=== PATIENT | female | born 1945 | race Caucasian/White ===

== ENCOUNTER 2016-09-05 12:27 | Inpatient (IN) | payer MEDICARE, BC ==
[~2016-09-05] VITALS: Ht 160 cm; Wt 97.3 kg
[~2016-09-05 12:27] MED LIST: AMARYL2 MG PO; COD LIVER OIL1 CAP PO; MELOXICAM15 MG PO; METFORMIN500 MG PO; MULTIVITAMIN FO1 CAP PO; NEXIUM40 MG PO; OSTEO-BI-FLEX 21 TAB PO; SIMVASTATIN40 MG PO
[2016-10-08] VITALS (10 sets, daily range): BP systolic 128–167; BP diastolic 65–88; PULSE 80–97; TEMP 97.6–98.4
[2016-10-08] MEDS ORDERED: AMARYL4 MG PO (06:07)
[2016-10-08] MEDS ORDERED: COZAAR100 MG PO (06:08)
[2016-10-08] MEDS ORDERED: LIPITOR 40MG TA40 MG PO (06:09)
[2016-10-08] MEDS ORDERED: MOBIC15 MG PO (06:09)
[2016-10-08] MEDS ORDERED: GLUCOPHAGE1000 MG PO (06:09)
[2016-10-08] MEDS ORDERED: PLENDIL 5MG TAB5 MG PO (06:10)
[2016-10-08] MEDS ORDERED: ACTOS30 MG PO (06:10)
[2016-10-08] MEDS ORDERED: ASPIRIN E.C. 8181 MG PO (06:11)
[2016-10-08] MEDS ORDERED: LUTEIN20 M1 (06:12)
[2016-10-08] MEDS ORDERED: TIROSINT50 MC1 PO (06:12)
[2016-10-08] MEDS ORDERED: NEXIUM 40MG40 MG PO (06:13)
[2016-10-08] MEDS ORDERED: ALEVE 220MG220 MG PO (06:13)
[2016-10-08 11:23] LABS: MEAN CELL VOLUME 93 fl (80.0-100.0); MEAN CORPUSCULAR HGB CONC 34 g/dl (33.0-37.0); MEAN PLATELET VOLUME 9.4 fl (7.4-10.4); PLATELET COUNT 192 K/mm3 (130-400); RED BLOOD COUNT 3.78 M/mm3 (4.10-5.30); REDCELL DISTRIBUTION WIDTH-CV 12.8 % (11.5-14.5); WHITE BLOOD COUNT 10.3 K/mm3 (4.8-10.8)
[2016-10-08 11:26] LABS: HEMOGLOBIN 11.9 g/dl (12.5-16.0); MEAN CORPUSCULAR HEMOGLOBIN 31 pg (27.0-31.0)
[2016-10-09 00:09] VITALS: BP 144/69; PULSE 86; TEMP 98.4
[2016-10-09 05:01] VITALS: BP 155/67; PULSE 91; TEMP 98.8
[2016-10-09 07:27] LABS: BASO % 0.1 % (0.0-2.0); EOS % 0.1 % (0-4.0); GRAN # 10.8 (1.4-6.5); GRAN % 79.7 % (42.2-75.2); LYMPH # 1.4 (1.2-3.4); LYMPH % 10.2 % (20.0-51.0); MEAN CELL VOLUME 93 fl (80.0-100.0); MEAN CORPUSCULAR HGB CONC 34 g/dl (33.0-37.0); MEAN PLATELET VOLUME 9.2 fl (7.4-10.4); MONO # 1.3 (0.1-0.6); MONO % 9.5 % (1.7-9.3); PLATELET COUNT 188 K/mm3 (130-400); RED BLOOD COUNT 3.08 M/mm3 (4.10-5.30); REDCELL DISTRIBUTION WIDTH-CV 13.2 % (11.5-14.5); WHITE BLOOD COUNT 13.5 K/mm3 (4.8-10.8)
[2016-10-09 07:45] LABS: HEMATOCRIT 28.7 % (37.0-47.0); HEMOGLOBIN 9.8 g/dl (12.5-16.0); MEAN CORPUSCULAR HEMOGLOBIN 32 pg (27.0-31.0)
[2016-10-09 07:49] LABS: CALCIUM 8.9 mg/dL (8.4-10.2); CREATININE, serum 0.64 mg/dL (0.52-1.25); POTASSIUM 3.8 mmol/L (3.4-5.0)
[2016-10-09 09:41] VITALS: BP 140/66; PULSE 90; TEMP 98.8
[2016-10-09 13:45] VITALS: BP 138/65; PULSE 85; TEMP 98
[2016-10-09 17:24] VITALS: BP 128/59; PULSE 82; TEMP 98.7
[2016-10-09 22:32] VITALS: BP 137/58; PULSE 79; TEMP 97.8
[2016-10-10 05:36] VITALS: BP 125/55; PULSE 75; TEMP 98.1
[2016-10-10 07:26] LABS: HEMATOCRIT 27.6 % (37.0-47.0); HEMOGLOBIN 9.5 g/dl (12.5-16.0); MEAN CELL VOLUME 92 fl (80.0-100.0); MEAN CORPUSCULAR HEMOGLOBIN 32 pg (27.0-31.0); MEAN CORPUSCULAR HGB CONC 34 g/dl (33.0-37.0); MEAN PLATELET VOLUME 9.1 fl (7.4-10.4); PLATELET COUNT 151 K/mm3 (130-400); REDCELL DISTRIBUTION WIDTH-CV 13.1 % (11.5-14.5); WHITE BLOOD COUNT 10.6 K/mm3 (4.8-10.8)
[2016-10-10 09:37] VITALS: BP 139/56; PULSE 79; TEMP 98.7
[2016-10-10 09:43] LABS: ALBUMIN 3.3 gm/dL (3.5-5.0); BILIRUBIN,TOTAL 2.3 mg/dL (0.0-1.0); CALCIUM 9.4 mg/dL (8.4-10.2); CREATININE, serum 0.63 mg/dL (0.52-1.25); POTASSIUM 4.3 mmol/L (3.4-5.0); TOTAL PROTEIN 6.1 gm/dL (6.4-8.2)
[2016-10-10 13:46] VITALS: BP 117/58; PULSE 80; TEMP 98.1
[2016-10-10 17:47] VITALS: BP 125/57; PULSE 80; TEMP 99.2
[2016-10-10 19:01] LABS: ADJUSTED CALCIUM 10.3 mg/dL (8.4-10.2); ALBUMIN 3.8 gm/dL (3.5-5.0); BILIRUBIN,TOTAL 2.3 mg/dL (0.0-1.0); CALCIUM 10.1 mg/dL (8.4-10.2); CREATININE, serum 0.74 mg/dL (0.52-1.25); POTASSIUM 3.7 mmol/L (3.4-5.0); TOTAL PROTEIN 6.6 gm/dL (6.4-8.2)
[2016-10-10 21:40] VITALS: BP 121/61; PULSE 75; TEMP 98.2
[2016-10-11 01:14] VITALS: BP 136/53; PULSE 73; TEMP 97.3
[2016-10-11 05:36] VITALS: BP 144/71; PULSE 69; TEMP 97.5
[2016-10-11 09:14] VITALS: BP 141/62; PULSE 92; TEMP 98.4
[2016-10-11 13:39] VITALS: BP 124/62; PULSE 79; TEMP 98.2
== END 2016-10-11 15:14 | disposition home or self-care (01) | DRG 658 ==
LOC: INPTSU 10-08 05:40 → SURG 10-08 07:30
PROVIDERS: Internal Medicine Cardiovascular Disease; Urology
PROC: 8E0W4CZ Robotic Assisted Procedure of Trunk Region, Percutaneous Endoscopic Approach (ICD-10-PCS; 2016-10-08)
PROC: 0TB04ZZ Excision of Right Kidney, Percutaneous Endoscopic Approach (ICD-10-PCS; principal; 2016-10-08 07:30)
DX: C64.1 Malignant neoplasm of right kidney, except renal pelvis (principal); I10 Essential (primary) hypertension; E03.9 Hypothyroidism, unspecified; E11.65 Type 2 diabetes mellitus with hyperglycemia; K21.9 Gastro-esophageal reflux disease without esophagitis; E86.1 Hypovolemia; I35.0 Nonrheumatic aortic (valve) stenosis; Z87.891 Personal history of nicotine dependence; Z79.84 Long term (current) use of oral hypoglycemic drugs
CPT/HCPCS: 99222-AI; 99233-AI; A4315; A9284; C1713; J0690; J1100; J1170; J1815; J1940; J2250; J2270; J2405; J2704; J2710; J3010; J7030

== ENCOUNTER → 2021-11-14 | Outpatient (CLI) | payer MEDICARE, BC ==
[~2021-11-14] MED LIST changes: +ACTOS30 MG PO; +ALEVE 220MG220 MG PO; +AMARYL4 MG PO; +ASPIRIN E.C. 8181 MG PO; +COZAAR100 MG PO; +GLUCOPHAGE1000 MG PO; +LIPITOR 40MG TA40 MG PO; +LUTEIN20 M1; +MOBIC15 MG PO; +NEXIUM 40MG40 MG PO; +PLENDIL 5MG TAB5 MG PO; +TIROSINT50 MC1 PO
== END ==
LOC: MC.RAD 09:51
DX: N63.20 Unspecified lump in the left breast, unspecified quadrant (principal)